=== PATIENT | male | born 1965 | race African-American/Black ===

== ENCOUNTER 2017-11-12 06:56 | Day surgery (SDC) | payer MEDICAID ==
[~2017-11-12] VITALS: Ht 175.3 cm; Wt 122.0 kg
[~2017-11-12 06:56] MED LIST: ATEN50TA PO; CYCL10TA7 PO; DIAZ10TA PO; HYDR25TA PO; LACTATED RINGERS 1,000 ML IV SCH; PHEN100C4 PO; SERT50TA PO; TRAM50TA3 PO
[2017-11-12] MEDS ORDERED: BACITRACIN ZINC 15GM TUBE TOP ONE (07:41)
[2017-11-12] MEDS ORDERED: SKIN ADHESIVE 0.7 GM EA TOP ONE ×2 (07:41→07:42)
[2017-11-12] MEDS ORDERED: LIDOCAINE HCL/PF 1% 10 MG/ML 5ML VIAL ONE (07:42)
[2017-11-12] MEDS ORDERED: BUPIVACAINE HCL 0.5% (5MG/ML) 50ML ONE (07:42)
[2017-11-12] MEDS ORDERED: TRAZ-129 PO (08:38)
[2017-11-12] MEDS ORDERED: TYLENOL #3 PO (08:41)
[2017-11-12] MEDS ORDERED: CYCLOBENZAPRINE 10MG TABLET PO ONE (10:15)
[2017-11-12] MEDS ORDERED: PROPOFOL 200MG/20ML VIAL IV ONE (11:37)
[2017-11-12] MEDS ORDERED: PHENYLEPHRINE HCL 10 MG/ML 1ML (IV VIAL) IV ONE (11:37)
[2017-11-12] MEDS ORDERED: CEFAZOLIN SODIUM 1000MG/VIAL ONE (11:48)
[2017-11-12] MEDS ORDERED: HYDROMORPHONE HCL/PF 2MG/ML CPJ IV PRN (12:45)
[2017-11-12] MEDS ORDERED: ONDANSETRON HCL 4MG/2ML VIAL IV PRN (12:45)
[2017-11-12 13:19] VITALS: BP 144/77
== END 2017-11-12 13:50 | disposition home or self-care (01) ==
LOC: OR 06:56
PROVIDERS: ATTEND Surgery
DX: D17.0 Benign lipomatous neoplasm of skin and subcutaneous tissue of head, face and neck (principal); I11.9 Hypertensive heart disease without heart failure; G89.29 Other chronic pain; E66.3 Overweight; Z79.899 Other long term (current) drug therapy; Z98.890 Other specified postprocedural states
CPT/HCPCS: 21552; 71045; 88304; G0168; J0690; J1170; J2370; J3490; J7120; J2704